=== PATIENT | male | born 2000 | race African-American/Black ===

== ENCOUNTER 2021-02-08 12:37 | Emergency (ER) | payer SELFPAY ==
[~2021-02-08] VITALS: Ht 182.8 cm; Wt 75.0 kg
[2021-02-08 12:42] VITALS: BP 121/65
[2021-02-08] MEDS ORDERED: NAPR-1071 PO (12:56)
[2021-02-08] MEDS ORDERED: ACHD5005 PO (12:56)
--- NOTE | 2021-02-08 12:57 | ED EENT ---
History of Present Illness General Chief Complaint: General Problems/Pain Stated Complaint: SCREWS IN MOUTH PAIN JAW FX Source: patient Exam Limitations: no limitations History of Present Illness Date Seen by Provider: Feb 08, 2021 Time Seen by Provider: 12:53 Initial Comments Patient sustained a fracture of the maxilla and mandible in [facility] about 4 months ago. He had screws and brackets placed for stability. He is not from here but he lives here currently. He presents today for pain Timing/Duration: gradual Severity: moderate Associated Symptoms: denies symptoms Allergies and Home Medications Patient Home Medication List Home Medication List Reviewed: Yes Review of Systems Review of Systems Constitutional: see HPI Eyes: No Symptoms Reported Ears: No Symptoms Reported Nose: no symptoms reported Mouth: see HPI Throat: no symptoms reported Respiratory: no symptoms reported Cardiovascular: no symptoms reported Musculoskeletal: no symptoms reported Physical Exam Height, Weight, BMI Height: '" Weight: lbs. oz. kg; BMI Method: General Appearance: WD/WN, no apparent distress Eyes: bilateral eye normal inspection, bilateral eye PERRL, bilateral eye EOMI Ears: bilateral ear auricle normal, bilateral ear canal normal, bilateral ear TM normal Mouth/Throat: other (He does have screws in brackets into the gingiva above the teeth on both the maxilla and mandible. There is no associated swelling or purulent drainage.) Neck: non-tender, full range of motion Respiratory: no respiratory distress, no accessory muscle use Neurologic/Psychiatric: alert, normal mood/affect, oriented x 3 Skin: normal color, warm/dry Departure Impression Primary Impression: Dental implant pain Disposition: 01 HOME, SELF-CARE Condition: Stable Departure-Patient Inst. Decision time for Depature: 12:55 Referrals: JUAN ANTONIO WYATT DDDonna NO,LOCAL PHYSICIAN (PCP) Primary Care Physician Patient Instructions: Dental Pain (DC) Add. Discharge Instructions: 1. Call Dr. Wyatt who is our local oral surgeon. Take the pain medication as directed in the meantime. All discharge instructions reviewed with patient and/or family. Voiced und erstanding. Scripts Hydrocodone/Acetaminophen (Hydrocodone-Acetamin 5-325 mg) 1 Each Tablet 1 TAB PO Q4H PRN for PAIN-MODERATE (5-7), #10 TAB Prov: DOMENIC PRESTON [employer]ATOR 02/08/21 Naproxen (Naprosyn) 500 Mg Tablet 500 MG PO BID PRN for PAIN-MODERATE (5-7), #30 TAB 0 Refills Prov: DOMENIC PRESTON APRN 02/08/21 DOMENIC PRESTON APRN Feb 08, 2021 12:57
== END 2021-02-08 13:02 | disposition home or self-care (01) ==
LOC: ER 12:40
DX: G89.18 Other acute postprocedural pain (principal); K08.89 Other specified disorders of teeth and supporting structures; Z87.81 Personal history of (healed) traumatic fracture; Z96.5 Presence of tooth-root and mandibular implants
CPT/HCPCS: 99281